=== PATIENT | female | born 1940 ===

== ENCOUNTER 2018-07-06 11:42 | Outpatient (CLI) | payer OTHER ==
[~2018-07-06 11:42] MED LIST: CIPRO250 MG PO; COLACE100 MG PO; COZAAR50 MG PO; DICY10CA PO; ULTRACET PO
[2018-07-11] MEDS ORDERED: MACROBID 100 M100 MG PO (11:24)
[2018-07-14] MEDS ORDERED: NEURONTIN300 MG PO ×2 (12:20)
[2018-07-14] MEDS ORDERED: KETO10TA2 PO ×2 (12:20)
== END 2018-07-06 11:49 | disposition home or self-care (01) ==
LOC: RAD 11:42
DX: K59.02 Outlet dysfunction constipation (principal); Z01.810 Encounter for preprocedural cardiovascular examination

== ENCOUNTER 2018-07-13 10:00 | Day surgery (SDC) | payer OTHER ==
[~2018-07-13] VITALS: Ht 154.9 cm; Wt 72.6 kg
[~2018-07-13 10:00] MED LIST changes: +MACROBID 100 M100 MG PO
[2018-07-14] MEDS ORDERED: NEURONTIN300 MG PO (12:20)
[2018-07-14] MEDS ORDERED: KETO10TA2 PO (12:20)
== END 2018-07-14 09:00 | disposition home or self-care (01) ==
LOC: CIR.AMB 10:00 → SURH 14:30 → SURG 15:34 → O/R 15:34 → CIR.AMB 07-14 09:00 → SURG 07-14 12:27 → O/R 07-14 12:27
DX: N81.6 Rectocele (principal); R15.9 Full incontinence of feces; I10 Essential (primary) hypertension

== ENCOUNTER 2024-02-03 09:44 | Outpatient (CLI) | payer OTHER ==
[~2024-02-03 09:44] MED LIST changes: +KETO10TA2 PO; +NEURONTIN300 MG PO
== END 2024-02-03 09:52 | disposition home or self-care (01) ==
LOC: MRI 09:44
PROVIDERS: ATTEND Surgery
DX: R51.9 Headache, unspecified (principal); R39.15 Urgency of urination; K58.9 Irritable bowel syndrome, unspecified; K57.30 Diverticulosis of large intestine without perforation or abscess without bleeding
CPT/HCPCS: 74183; Q9965

== ENCOUNTER → 2024-09-22 12:51 | Outpatient (CLI) | payer OTHER ==
[2024-09-22 14:05] LABS: CREATININE SERUM 0.58 mg/dL (0.55-1.02)
== END | disposition home or self-care (01) ==
LOC: LAB 12:51
PROVIDERS: ATTEND Radiology Diagnostic Radiology
DX: R90.0 Intracranial space-occupying lesion found on diagnostic imaging of central nervous system (principal)

== ENCOUNTER 2024-09-26 11:01 | Outpatient (CLI) | payer OTHER | END 2024-09-26 11:06 | disposition home or self-care (01) | LOC: MRI 11:01 | PROVIDERS: ATTEND Internal Medicine | DX: R90.0 Intracranial space-occupying lesion found on diagnostic imaging of central nervous system (principal) | CPT/HCPCS: 70553; Q9965; 70552 ==

== ENCOUNTER 2025-01-25 12:41 | Outpatient (CLI) | payer OTHER | END 2025-01-25 12:44 | disposition home or self-care (01) | LOC: NUCLEAR 12:41 | PROVIDERS: ATTEND Internal Medicine | DX: M79.604 Pain in right leg (principal) ==

== ENCOUNTER 2025-01-25 13:44 | Outpatient (CLI) | payer OTHER | END 2025-01-25 13:52 | disposition home or self-care (01) | LOC: MRI 13:44 | DX: M25.561 Pain in right knee (principal) | CPT/HCPCS: 73721 ==

== ENCOUNTER 2025-02-09 13:26 | Outpatient (CLI) | payer OTHER | END 2025-02-09 13:31 | disposition home or self-care (01) | LOC: RAD 13:26 | PROVIDERS: ATTEND Orthopaedic Surgery | DX: M54.50 Low back pain, unspecified (principal); M25.551 Pain in right hip ==

== ENCOUNTER → 2025-03-19 | Outpatient (CLI) | payer OTHER | END | disposition home or self-care (01) | LOC: MRI 13:58 | PROVIDERS: ATTEND Physical Medicine & Rehabilitation Pain Medicine | DX: M54.17 Radiculopathy, lumbosacral region (principal) | CPT/HCPCS: 72148 ==